=== PATIENT | female | born 1955 | race Caucasian/White ===

== ENCOUNTER 2018-01-23 10:13 | Emergency (ER) | payer MEDICAID ==
[2018-01-23] MEDS ORDERED: cefTRIAXone 1 GM VIAL IM STA (11:04)
[2018-01-23] MEDS ORDERED: LIDOCAINE 1% 2 ML VIAL SUBQ ONE (11:04)
--- NOTE | 2018-01-23 11:07 | ED Physician Documentation ---
PD HPI SKIN - Stated complaint Stated Complaint: BUMP ON LEG - Chief complaint Chief Complaint: Wound - History obtained from History obtained from: Patient, Family - History of Present Illness Timing - onset: How many days ago (3) Timing - duration: Days (3) Timing - details: Gradual onset, Still present Location: LLE Quality / character: Itchy, Painful, Discolored, Raised, Swelling Associated symptoms: No: Fever, Myalgias Similar symptoms before: Diagnosis (abscess) Recently seen: Not recently seen - Additional information Additional information: 62-year-old female has developed a tender red area on her left lateral calf and the swelling has spread across the calf with redness associated with it. She does not have any fluctuance to the area and no drainage from the area. She has had something similar to this previously with an abscess that needed to be drained. She is allergic to sulfa and penicillins. Review of Systems Constitutional: denies: Fever, Chills, Myalgias, Fatigue Eyes: denies: Decreased vision Ears: denies: Ear pain Nose: denies: Congestion Throat: denies: Sore throat Respiratory: denies: Cough GI: denies: Vomiting : denies: Dysuria, Frequency Skin: reports: Rash, Lesions Musculoskeletal: reports: Extremity pain. denies: Neck pain, Back pain Neurologic: denies: Generalized weakness, Focal weakness PD PAST MEDICAL HISTORY - Past Medical History Past Medical History: Yes - Past Surgical History Past Surgical History: Yes General: Appendectomy /[employer]: Hysterectomy HEENT: Tonsil/Adenoidectomy - Present Medications Home Medications: Ambulatory Orders Medication Instructions Recorded Confirmed Clindamycin [Cleocin] 300 mg PO Q6H #28 capsule 01/23/18 Ergocalciferol [Vitamin D2] 01/23/18 - Allergies Allergies/Adverse Reactions: Allergies Allergy/AdvReac Type Severity Reaction Status Date / Time Sulfa (Sulfonamide Allergy Mild Nausea Verified 01/23/18 10:21 Antibiotics) Penicillins AdvReac Severe Anaphylaxis Verified 01/23/18 10:21 - Social History Does the pt smoke?: Yes Smoking Status: Current every day smoker Does the pt drink ETOH?: No Does the pt have substance abuse?: No - Immunizations Immunizations are current?: Yes PD ED PE NORMAL - Vitals Vital signs reviewed: Yes (normal ) - General General: Alert and oriented X 3, No acute distress, Well developed/nourished - HEENT HEENT: Atraumatic, PERRL, EOMI - Neck Neck: Supple, no meningeal sign - Respiratory Respiratory: No respiratory distress - Derm Derm: Normal color, Warm and dry - Extremities Extremities: No deformity, Other (There is a 3cm round area over the left superior lateral calf that is deeply erythematous and without fluctuance. There is surrounding erythema that extends medially and inferiorly. The distal n/v is intact. ) - Neuro Neuro: Alert and oriented X 3, No motor deficit, No sensory deficit, Normal speech Eye Opening: Spontaneous Motor: Obeys Commands Verbal: Oriented GCS Score: 15 - Psych Psych: Normal mood, Normal affect Results - Vitals Vitals: Vital Signs - 24 hr 01/23/18 10:17 Temperature 36.9 C Heart Rate 88 Respiratory 16 Rate Blood Pressure 136/72 H O2 Saturation 96 Oxygen O2 Source Room air PD MEDICAL DECISION MAKING - ED course Complexity details: considered differential, d/w patient, d/w family ED course: 62-year-old female with an unripe abscess in the left lateral superior calf has cellulitis as well. The borders of the cellulitis are marked and the patient is given an injection of Rocephin. She is instructed to return for progression of erythema outside the margins or fluctuance of the abscess. - Sepsis Event Vital Signs: Vital Signs - 24 hr 01/23/18 10:17 Temperature 36.9 C Heart Rate 88 Respiratory 16 Rate Blood Pressure 136/72 H O2 Saturation 96 Oxygen O2 Source Room air Departure - Departure Disposition: 01 Home, Self Care Clinical Impression: Abscess Cellulitis Qualifiers: Site of cellulitis: extremity Site of cellulitis of extremity: lower extremity Laterality: left Qualified Code(s): L03.116 - Cellulitis of left lower limb Condition: Stable Instructions: ED Infec Skin Cellulitis, ED Staph Infec Abx Tx Only Follow-Up: [facility] [Provider Group] Prescriptions: Clindamycin [Cleocin] 300 mg PO Q6H #28 capsule
[2018-01-23 11:53] VITALS: BP 137/75
== END 2018-01-23 11:50 | disposition home or self-care (01) ==
LOC: ED 10:13
DX: L02.416 Cutaneous abscess of left lower limb (principal); L03.116 Cellulitis of left lower limb; F17.200 Nicotine dependence, unspecified, uncomplicated
CPT/HCPCS: 96372; 99283

== ENCOUNTER 2018-09-28 08:00 | Outpatient (CLI) | payer MEDICAID | END 2018-09-28 23:59 | disposition home or self-care (01) | LOC: LAB.R 08:00 | PROVIDERS: ATTEND Registered Nurse | DX: L02.91 Cutaneous abscess, unspecified (principal) | CPT/HCPCS: 87070; 87077; 87181; 87205 ==